=== PATIENT | female | born 1980 ===

== ENCOUNTER 2017-05-23 05:14 | Day surgery (SDC) | payer BC ==
[2017-05-23] VITALS (8 sets, daily range): BP systolic 96–115; BP diastolic 58–73
[~2017-05-23] VITALS: Ht 170.2 cm; Wt 64.9 kg
[~2017-05-23 05:14] MED LIST: FOLIC ACID1 MG ORAL
[2017-05-23] MEDS ORDERED: TUMS X-STR300 MG PO (05:59)
[2017-05-23] MEDS ORDERED: LR 1000ml 1,000 ML IVLG SCH (07:00)
--- NOTE | 2017-05-23 07:26 | Short Stay Surgery H&P ---
History of Present Illness History of Present Illness Chief Complaint see typed H&P HPI Raine Christine is a 37 year old female who was admitted on for Blood In Stool Patient History Allergies: Coded Allergies: ERYTHROMYCIN BASE (Verified Allergy, Severe, palpitations, bad headache, nausea, 05/22/17) PAST MEDICAL HISTORY: Past Surgeries: Social History: Medication History Scheduled Folic Acid* (Folic Acid*), 1 MG ORAL DAILY, (Reported) Miscellaneous Medications Calcium Carbonate (Tums X-Str), 1,000 MG PO, (Reported) Physical Exam Vital Signs Last Vital Signs Date Time Temp Pulse Resp B/P (MAP) Pulse Ox O2 Delivery O2 Flow Rate FiO2 05/23/17 05:59 97.2 84 20 115/73 100 Room Air Labs Laboratory Tests Test 05/23/17 05:30 Urine HCG, Qualitative Negative Plan Attestation Are the patient's medical conditions optimized for surgery? JJ SORIANO May 23, 2017 07:26
--- NOTE | 2017-05-23 07:26 | Pre-Procedure Note/Attestation ---
Pre-Procedure Note/Attestation Complete Prior to Procedure Planned Procedure: not applicable Procedure Narrative: EGD/Colon Indications for Procedure Pre-Operative Diagnosis: Heme (+) Attestation I attest that I discussed the nature of the procedure; its benefits; risks and complications; and alternatives (and the risks and benefits of such alternatives ), prior to the procedure, with the patient (or the patient's legal leather goods sales representative). I attest that, if there was a reasonable possibility of needing a blood transfusion, the patient (or the patient's legal leather goods sales representative) was given the [facility] standardized written summary, pursuant to the [employer] Blood Safety Act ([place] Health and Safety Code # 1645, as amended). I attest that I re-evaluated the patient just prior to the surgery and that there has been no change in the patient's H&P, except as documented below: JJ SORIANO May 23, 2017 07:26
[2017-05-23] MEDS ORDERED: fentaNYL 100 mcg/2 mL IV ONE (07:30)
[2017-05-23] MEDS ORDERED: Midazolam 2mg/2ml Inj ONE (07:30)
[2017-05-23] MEDS ORDERED: LR 1000ml ONE (07:30)
[2017-05-23] MEDS ORDERED: Propofol 200mg/20ml IV ONE (07:30)
--- NOTE | 2017-05-23 08:07 | Anethesia Preoperative Eval ---
Anesthesia Pre-op PMH/ROS General Date of Evaluation: May 23, 2017 Time of Evaluation: 07:30 Anesthesiologist: declan ASA Score: ASA 1 Mallampati Score Class I : Soft palate, uvula, fauces, pillars visible Class II: Soft palate, uvula, fauces visible Class III: Soft palate, base of uvula visible Class IV: Only hard plate visible Mallampati Classification: Class II Surgeon: vanessa Diagnosis: abdominal pain Surgical Procedure: egd/colonoscopy Anesthesia History: none Family History: no anesthesia problems Allergies: Coded Allergies: ERYTHROMYCIN BASE (Verified Allergy, Severe, palpitations, bad headache, nausea, 05/22/17) Anesthesia Pre-op Phys. Exam Physician Exam Last Vital Signs Date Time Temp Pulse Resp B/P (MAP) Pulse Ox O2 Delivery O2 Flow Rate FiO2 05/23/17 05:59 97.2 84 20 115/73 100 Room Air Airway Exam Mallampati Score: Class I Anesthesia Pre-op A/P Labs Urine Test Test 05/23/17 05:30 Urine HCG, Qualitative Negative Brian Shaikh M.D. May 23, 2017 08:07
--- NOTE | 2017-05-23 08:09 | 48 Hour Post Anesthesia Eval ---
Post Anesthesia Evaluation Procedure: egd/colonoscopy Date of Evaluation: May 25, 2017 Time of Evaluation: 08:00 Blood Pressure Systolic: 110 0: 92 Pulse Rate: 81 Respiratory Rate: 16 Temperature (Fahrenheit): 98 O2 Sat by Pulse Oximetry: 99 Airway: patent Nausea: No Vomiting: No Pain Intensity: 0 If pain is > 6 Comment: 0 Hydration Status: adequate Mental Status/LOC: patient returned to baseline Follow-up care needed: patient intructions given Brian Shaikh M.D. May 23, 2017 08:09
--- NOTE | 2017-05-23 08:10 | Immediate Post-Op Evaluation ---
Immediate Post-Op Evalulation Immediate Post-Op Evalulation Procedure: egd/colonoscopy Date of Evaluation: May 23, 2017 Time of Evaluation: 08:15 IV Fluids: LRS Blood Products: 0 Estimated Blood Loss: 0 Urinary Output: 0 Blood Pressure Systolic: 112 Blood Pressure Diastolic: 85 Pulse Rate: 61 Respiratory Rate: 16 O2 Sat by Pulse Oximetry: 99 Temperature (Fahrenheit): 98 Pain Score (1-10): 0 Nausea: No Vomiting: No Patient Status: awake Given Within 1 Hr of Incision: No Brian Shaikh M.D. May 23, 2017 08:10
--- NOTE | 2017-05-23 08:34 | Endoscopy Procedure Note ---
Endoscopy Procedure Note Indication for Procedure: heme (+), abd pain Procedures Performed: EGD, colonoscopy, other Operative Findings/Diagnosis: antrum AVM, fissure with tag Specimen: yes Pt Tolerated Procedure Well: Yes Estimated Blood Loss: none Anesthesiologist: see note Anesthesia: MAC Medication Given: see anesthesia record Implant(s) used?: No 50 yrs or older w/o bx or poly: Not Applicable 10yrs. F/U not recommended: Not Applicable If not recommended, why?: JJ SORIANO May 23, 2017 08:34
--- NOTE | 2017-05-23 08:37 | Brief Operative Note ---
Immediate Post Operative Note Operative Note Chief Complaint: heme (+) Pre-op Diagnosis: Heme (+) Procedure: esophagogastroduodenoscopycolon, bicap, bx,bx, Post-op Diagnosis: EGD/bx,AVM, colon/Bx Surgeon: vanessa Anesthesiologist: see list Anesthesia: MAC Specimen: yes Complications: none Condition: stable Fluids: see anesthesia Estimated Blood Loss: none Drains: none Implant(s) used?: No JJ SORIANO May 23, 2017 08:37
--- NOTE | 2017-05-23 21:45 | Operative Note - Dictated ---
DATE OF OPERATION: 05/23/2017 GASTROENTEROLOGY PROCEDURE REPORT Procedure: Upper gastrointestinal endoscopy and colonoscopy with biopsy and cautery. SURGEON: Stacey Rios M.D. Anesthesia: Please see the separate anesthesiologist notes for details. PRE-ENDOSCOPIC DIAGNOSES: 1. Heme-positive stools. 2. Abdominal pain. 3. Hematochezia. 4. History of anal fissure. POST-ENDOSCOPIC DIAGNOSES: 1. 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 2. Status post random biopsy of the duodenum, antrum, and lower esophagus. 3. No ulcers were seen in the upper gastrointestinal tract. 4. Normal colonoscopy to the terminal ileum. 5. Status post random biopsy of the right colon and left colon. 6. Anal fissure with a tag at 12 o' clock position. No hemorrhoids were seen. Procedure: The procedure, its risks, indications, alternatives, and possible complications including, but not limited to, bleeding, infection, perforation, , and anesthesia complications were explained to the patient and informed consent was obtained. The patient was then sedated in the left lateral decubitus position. A diagnostic upper endoscope was introduced into the oropharynx and advanced to the duodenum. The endoscope was then removed. The colonoscope was introduced into the rectum and advanced to the terminal ileum. The colonoscope was then gradually withdrawn. The procedures and findings performed were as listed above. The colonoscope was removed. The patient was sent to recovery in good condition. COMPLICATIONS: None. Assessment: This patient's anal pain and intermittent hematochezia is due to the anal fissure. This was also likewise heme-positive stools. The etiology of the abdominal pain is not clear, but the biopsy of the procedure will be reviewed and results were discussed with the patient with followup. The patient was advised for now to take 500 mg of Colace in divided doses daily and follow up in few weeks for symptoms. RECOMMENDATIONS: 1. Resume oral diet. 2. Colace 500 mg p.o. daily in divided doses. 3. Outpatient followup. 4. We will consider colorectal surgery performed if symptoms persist. Stacey Rios M.D. DR: SETH JOB#: [id number] CC: NICHELLE
== END 2017-05-23 09:20 | disposition home or self-care (01) ==
LOC: GAS 05:14
DX: K29.50 Unspecified chronic gastritis without bleeding (principal); R10.9 Unspecified abdominal pain; K92.1 Melena; K60.2 Anal fissure, unspecified; Q27.33 Arteriovenous malformation of digestive system vessel; Z82.3 Family history of stroke; D56.9 Thalassemia, unspecified; Z88.8 Allergy status to other drugs, medicaments and biological substances
CPT/HCPCS: 43239; 43250; 45380; 81025; J2250; J2704; J3010; J7120; 94003; 94150